=== PATIENT | male | born 1955 | race Caucasian/White ===

== ENCOUNTER 2020-05-01 19:05 | Observation (INO) | payer MEDICARE, OTHER, SELFPAY ==
--- NOTE | ~2020-05-01 | XR_ITS ---
EXAMINATION: XR abdomen/kub 1V EXAM DATE: 05/03/2020 06:08 INDICATION: Constipation. TECHNIQUE: Frontal projection(s) of the abdomen for interpretation. Comparison is made to prior exami nation from 05/02/2020. FINDINGS: Interval decrease in quantity of colonic gas compared to yesterday, now small to moderate. There is no small bowel dilation. There is right hip replacement. Some lower lumbar spondylosis. Cho lecystectomy clips. IMPRESSION: Unremarkable XR abdomen/kub 1V exam. Reviewed, dictated and finalized at location A.
--- NOTE | ~2020-05-01 | XR_ITS ---
EXAMINATION: XR abdomen/kub 1V INDICATION: Constipation, abdominal pain TECHNIQUE: Supine view of the abdomen is obtained. COMPARISON: None FINDINGS: There is a moderate volume of persistent stool in the rectum. The bowel gas pattern is norm al. There is mild gaseous distention of the proximal transverse colon. Changes of right hip arthropla sty are noted. Contrast from earlier CT examination opacifies the urinary bladder. IMPRESSION: 1. Moderate volume of persistent stool in the rectum. Reviewed, dictated and finalized at location B.
--- NOTE | ~2020-05-01 | CT_ITS ---
EXAMINATION: CT abdomen pelvis w con INDICATION: Abdominal pain and constipation TECHNIQUE: Computed tomographic images of the abdomen and pelvis were obtained after the administrati on of 100 cc of Omnipaque 350 intravenous contrast. The dose-length product (DLP) was 643.22 mGy-cm. Automated exposure control and iterative reconstruction technique were employed. COMPARISON: None available FINDINGS: Minimal dependent atelectasis is present in the lung bases. The heart size is normal. There is a small sliding hiatal hernia. Calcified coronary artery atherosclerosis is noted. The gallbladde r is surgically absent. The liver, spleen, pancreas, and adrenal glands are normal. The right kidney is unremarkable. Cysts of the left kidney measure up to 9 mm. No pathologically enlarged abdominal or pelvic lymph nodes are identified. There is no free intraperitoneal gas or evidence of bowel obstruc tion. There is a large volume of stool in the rectum and distal sigmoid colon. Changes of right hip a rthroplasty are noted. There is moderate lumbar spondylosis. IMPRESSION: 1. Fecal impaction of the rectum and distal sigmoid colon. Reviewed, dictated and finalized at location B.
[2020-05-01 19:06] VITALS: PULSE 56; RESP 20; TEMP 36.8; O2SAT 100
[2020-05-01 21:03] VITALS: BP 139/97; PULSE 101; RESP 18; O2SAT 100
--- NOTE | 2020-05-01 21:23 | ED.ABDPAIN ---
HPI - Abdominal Pain General Chief Complaint: Abdominal Pain <Neftaly Brooke MD - Last Filed: 05/02/20 17:58> Stated Complaint: constipation <Neftaly Brooke MD - Last Filed: 05/02/20 17:58> Time Seen by Provider: 05/01/20 21:10 <Neftaly Brooke MD - Last Filed: 05/02/20 17:58> History of Present Illness HPI narrative: He reports that he has not had a bowel movmeent in 1 week. He has started having severe pain in his rectum. He is hemiplegic following a stroke. He has had one previous episode of fecal impaction. No fever, nausea, vomiting. <Neftaly Brooke MD - Last Filed: 05/02/20 17:58> Related Data Home Medications: Home Medications Medication Instructions Recorded Confirmed aspirin 81 mg tablet,delayed 81 mg PO DAILY 08/25/19 05/02/20 release multivitamin 1 tablet PO DAILY 08/25/19 05/02/20 fluoxetine [Prozac] 20 mg PO DAILY 05/01/20 05/02/20 <Neftaly Brooke MD - Last Filed: 05/02/20 17:58> Allergies/Adverse Reactions: Allergies Allergy/AdvReac Type Severity Reaction Status Date / Time No Known Allergies Allergy Unknown Verified 05/01/20 21:00 <Neftaly Brooke MD - Last Filed: 05/02/20 17:58> Review of Systems Review of Systems: All systems reviewed & are unremarkable except as noted in HPI and below <Neftaly Brooke MD - Last Filed: 05/02/20 17:58> Constitutional: Constitutional: Denies fever(s) <Neftaly Brooke MD - Last Filed: 05/02/20 17:58> Cardiovascular: Cardiovascular: Denies chest pain <Neftaly Brooke MD - Last Filed: 05/02/20 17:58> Respiratory: Respiratory: Denies dyspnea <Neftaly Brooke MD - Last Filed: 05/02/20 17:58> Gastrointestinal: Gastrointestinal: Denies abdominal pain, Reports constipation, Denies nausea and Denies vomiting <Neftaly Brooke MD - Last Filed: 05/02/20 17:58> Neurologic: Denies dizziness <Neftaly Brooke MD - Last Filed: 05/02/20 17:58> [facility] Past Medical History Medical History: Medical History Benign prostatic hyperplasia with urinary frequency Constipation Depression Dyslipidemia Essential hypertension Fecal impaction in rectum Gastroesophageal reflux disease Hemiplegia affecting left nondominant side History of CVA (cerebrovascular accident) History of hemorrhagic cerebrovascular accident (CVA) with residual deficit History of nicotine use Quit smoking 11/2018 Physical deconditioning Ventral hernia without obstruction or gangrene Weight loss <Neftaly Brooke MD - Last Filed: 05/02/20 17:58> Surgical History Surgical History: Surgical History History of total right hip replacement Hx of cholecystectomy Hx of shoulder surgery <Neftaly Brooke MD - Last Filed: 05/02/20 17:58> Family History Family History: Family History Father Patient's father is Cerebrovascular accident Mother Patient's mother is Cardiac aneurysm Other Abdominal aortic aneurysm rupture Family history of arthritis Family history of malignant neoplasm Hypertension <Neftaly Brooke MD - Last Filed: 05/02/20 17:58> Social History Social History: Social History Smoking status: Former smoker Tobacco type: cigarettes Smoking end date: 11/26/18 Alcohol intake: never Substance use: current Substance use type: marijuana and prescription drug Other substance usage details: edibles Living arrangements: with family Additional living arrangements comments: His brother Jose Lives with him in [place]. He uses a wheelchair to get around. Occupation/Education: retired Additional occupation/education comments: He worked at [employer] for 26 years and recently reti
[2020-05-01 21:26] LABS: Basophils Percent Auto 0.2 % (0.2-1.2); Eosinophils Percent Auto 0.1 % (0-4.4); Hematocrit 43.3 % (42.0-52.0); Hemoglobin 14.9 g/dL (14.0-18.0); Immature Granulocyte Absolute 0.08 K/mm3 (0.00-0.031); Immature Granulocyte Percent A 0.4 % (0-0.5); Lymphocytes Absolute Auto 0.86 K/mm3 (0.9-3.2); Lymphocytes Percent Auto 4.7 % (18.3-44.2); Mean Corpuscular HGB Conc 34.4 g/dl (32-36); Mean Corpuscular Hemoglobin 32.3 pg (26-34); Mean Corpuscular Volume 93.9 fl (80-100); Mean Platelet Volume 10.2 fl (7.4-10.4); Monocytes Absolute Auto 1.6 K/mm3 (0.1-0.6); Monocytes Percent Auto 8.6 % (2.6-8.5); Neutrophils Absolute Auto 15.8 K/mm3 (1.3-6.7); Platelet Count Result 222 k/mm3 (150-375); Red Blood Count 4.61 M/mm3 (4.6-6.20); Red Cell Distribution Width 11.6 % (11.5-14.5); White Blood Count 18.4 K/mm3 (4.5-10.0)
[2020-05-01 21:40] LABS: Lactic Acid Reflex 1.7 mmol/L (0.7-2.1)
[2020-05-01 21:41] LABS: Alanine Aminotransferase 32 U/L (4-50); Albumin Level 4.2 g/dL (3.5-5.1); Alkaline Phosphatase 77 U/L (38-126); Anion Gap 12.8 mmol/L (7-16); Aspartate Amino Transferase 27 U/L (17-59); Bilirubin,Total 0.7 mg/dL (0.2-1.3); Blood Urea Nitrogen 22 mg/dL (9-20); Calcium 9.8 mg/dL (8.4-10.2); Carbon Dioxide 24 mmol/L (22-30); Chloride 102 mmol/L (98-107); Estimated CRCL calculation 80 ml/min; Estimated Glomerular Filt Rate > 60; Glucose 118 mg/dL (75-110); Potassium 3.8 mmol/L (3.4-5.0); Sodium 135 mmol/L (137-145)
[2020-05-01 22:07] LABS: Add Urine Microscopic? YES; Appearance Urine Clear (Clear); Bacteria Urine Trace /hpf; Bilirubin Urine Negative (Negative); Blood Urine Negative (Negative); Color Urine Yellow (Yellow); Glucose Urine UA Negative (Negative); Ketones Urine Negative (Negative); Leukocyte Esterase Ur Negative LEU/UL (Negative); Mucus Urine Rare /lpf; Nitrate Urine Negative (Negative); Protein Urine Negative (Negative); RBC Urine 0-2 /hpf (0-2); Specific Grav Ur 1.021 (1.001-1.035); Squamous Epithelial Cell Urine Rare /hpf (Few); Urobilinogen Urine Negative mg/dL (<2.0); WBC Urine 0-3 /hpf
[2020-05-01 22:32] VITALS: BP 142/84; PULSE 104; RESP 17; O2SAT 97
[2020-05-01] MEDS: DOCUSATE SODIUM 400 MG/400 ML ENEMA RECTAL (22:32)
[2020-05-01 23:45] VITALS: BP 154/80; PULSE 98; RESP 14; O2SAT 99
[2020-05-02] VITALS (9 sets, daily range): BP systolic 93–142; BP diastolic 62–117; PULSE 69–114; RESP 12–21; TEMP 36.4–36.6; O2SAT 97–99; BMI 21.1
--- NOTE | 2020-05-02 00:55 | PC.NURSE ---
Pt soiled bed with stool x4
[2020-05-02] MEDS: MORPHINE SULFATE 4 MG/ML INJ IV PUSH ×2 (04:05→06:12)
--- NOTE | 2020-05-02 05:23 | PC.NURSE ---
This patient, Kenneth Page, was admitted to 2 Medical Room 260-01. Patient/family oriented to hospital policies and general routines including ID bracelet, bed and alarms, visiting hours, pain management, procedures, bathroom and other care routines, personal items, smoking policy, room service/diet, and visiting hours. Valuables list has been completed. Information on how to activate the Rapid Response Team has been discussed. Patient/Family are encouraged to report perceived risks to care and to ask questions if they do not understand what they are told or what they should do.
[2020-05-02] MEDS: SODIUM CHLORIDE 0.9% IV 1,000 ML 125 ML IV CONT (05:25)
[2020-05-02 08:53] LABS: Basophils Percent Auto 0.3 % (0.2-1.2); Eosinophils Absolute Auto 0.1 K/mm3 (0-0.3); Eosinophils Percent Auto 0.6 % (0-4.4); Hematocrit 41.1 % (42.0-52.0); Hemoglobin 13.9 g/dL (14.0-18.0); Immature Granulocyte Absolute 0.07 K/mm3 (0.00-0.031); Immature Granulocyte Percent A 0.4 % (0-0.5); Lymphocytes Absolute Auto 1.47 K/mm3 (0.9-3.2); Lymphocytes Percent Auto 9.2 % (18.3-44.2); Mean Corpuscular HGB Conc 33.8 g/dl (32-36); Mean Corpuscular Hemoglobin 32.1 pg (26-34); Mean Corpuscular Volume 94.9 fl (80-100); Mean Platelet Volume 10.3 fl (7.4-10.4); Monocytes Absolute Auto 1.6 K/mm3 (0.1-0.6); Monocytes Percent Auto 9.8 % (2.6-8.5); Neutrophils Absolute Auto 12.7 K/mm3 (1.3-6.7); Neutrophils Percent Auto 79.7 % (45.5-73.1); Platelet Count Result 220 k/mm3 (150-375); Red Blood Count 4.33 M/mm3 (4.6-6.20); Red Cell Distribution Width 11.6 % (11.5-14.5)
[2020-05-02 09:05] LABS: Anion Gap 12.3 mmol/L (7-16); Blood Urea Nitrogen 19 mg/dL (9-20); Calcium 9.3 mg/dL (8.4-10.2); Carbon Dioxide 24 mmol/L (22-30); Chloride 103 mmol/L (98-107); Estimated CRCL calculation 74 ml/min; Estimated Glomerular Filt Rate > 60; Glucose 103 mg/dL (75-110); Potassium 4.3 mmol/L (3.4-5.0); Sodium 135 mmol/L (137-145)
[2020-05-02] MEDS: TAMSULOSIN HCL 0.4 MG CAPSULE PO (09:14)
[2020-05-02] MEDS: DOCUSATE SODIUM 100 MG CAPSULE PO (09:14)
[2020-05-02] MEDS: ASPIRIN 81 MG ENTERIC TABLET PO (09:14)
[2020-05-02] MEDS: ROSUVASTATIN 5 MG TABLET PO (09:14)
[2020-05-02] MEDS: FLUoxetine HCL 20 MG CAPSULE PO (09:14)
[2020-05-02] MEDS: MAGNESIUM HYDROXIDE SUSP 30 ML UDC PO (13:13)
[2020-05-02] MEDS: polyethylene glycoL 3350 17 GM POWD.PACK PO ×2 (13:14→15:55)
[2020-05-02] MEDS: traMADol HCL 50 MG TABLET PO ×2 (13:16→20:52)
--- NOTE | 2020-05-02 13:52 | PM.IMHP ---
H&P: HPI History of Present Illness Chief complaint: Obstipation, abd pain Narrative: Kenneth Page is a 64 year old male with history of CVA causing left-sided hemiparesis November of 2018, who presented to the emergency department with constipation for 1 week. He normally eats a high-fiber diet without any issues of constipation but states he has not had a good bowel movement in 1 week and began having gradually worsening severe pain at his rectum prior to arrival which caused him to come to the emergency room for further evaluation. He administered 2 Senokot tablets prior to arrival without any improvement of his constipation. He reports a lot of abdominal cramping and rectal pain. he denies any fevers, chills, nausea, vomiting, chest pain, shortness of breath, cough, lightheadedness, dizziness, leg swelling, calf pain, dysuria, frequent urination, dark color to his urine, or any other symptoms at this time. He also reports some left ear pain which has been going on for about a week as well. He has chronic Meniere's disease and tinnitus. He has chronic left-sided hemiparesis from his stroke and reports some left-sided hip pain and shoulder pain which is chronic. initial labs showed temperature of 98.2?, blood pressure 138/97, heart rate 56, respiratory rate 20, oxygen saturation 100% on room air. Initial labs showed leukocytosis at 18,400, with a left shift at 86%, sodium slightly low 135, normal lactic acid. Urinalysis was normal. CT abdomen pelvis shows fecal impaction of the rectum and distal sigmoid colon. He was admitted into the hospital for further evaluation treatment of his constipation. GI was consulted for further evaluation from the emergency department. Code status: DNR Power of real estate associate attorney: Brother Jose Page PCP: Dr. Diallo Review of Systems Review of Systems: All systems reviewed & are unremarkable except as noted in HPI and below [facility] Past Medical History Medical History Benign prostatic hyperplasia with urinary frequency Constipation Depression Dyslipidemia Essential hypertension Fecal impaction in rectum Gastroesophageal reflux disease Hemiplegia affecting left nondominant side History of CVA (cerebrovascular accident) History of hemorrhagic cerebrovascular accident (CVA) with residual deficit History of nicotine use Quit smoking 11/2018 Physical deconditioning Ventral hernia without obstruction or gangrene Weight loss Surgical History Surgical History History of total right hip replacement Hx of cholecystectomy Hx of shoulder surgery Family History Family History Father Patient's father is Cerebrovascular accident Mother Patient's mother is Cardiac aneurysm Other Abdominal aortic aneurysm rupture Family history of arthritis Family history of malignant neoplasm Hypertension Social History Social History Smoking status: Former smoker Tobacco type: cigarettes Smoking end date: 11/26/18 Alcohol intake: never Substance use: current Substance use type: marijuana and prescription drug Other substance usage details: edibles Living arrangements: with family Additional living arrangements comments: His brother Jose Lives with him in [place]. He uses a wheelchair to get around. Occupation/Education: retired Additional occupation/education comments: He worked at [employer] for 26 years and recently retired 2019. Gender identity (if verbalized by the patient): Male Spiritual care concerns: No Meds Home Medications and Allergies Home Medications Medication Instructions Recorded Confirmed Type aspirin 81 mg tablet,delayed 81 mg PO DAILY 08/25/19 05/02/20 History release multivit
--- NOTE | 2020-05-02 14:08 | WPDGICN ---
Assessment and Plan Assessment and plan (1) Fecal impaction in rectum: Code(s): K56.41 - Fecal impaction Status: Acute Assessment and Plan: rectal exam did not reveal more impaction, continue with bowel regimen (2) Constipation: Code(s): K59.00 - Constipation, unspecified Status: Acute Assessment and Plan: will need miralax in daily basis, also increase fiber in diet and monitor frequency of bowel movements at home he is not due to have another colonoscopy until 2022 (3) History of hemorrhagic cerebrovascular accident (CVA) with residual deficit: Code(s): I69.30 - Unspecified sequelae of cerebral infarction Status: Acute (4) Essential hypertension: Code(s): I10 - Essential (primary) hypertension Status: Acute GI Consult Note Consult date/time: 05/02/20 14:08 Reason for consult: fecal impaction HPI: Kenneth Page is a 64 year old male with left sided hemiplegia after CVA last year and constipation since then. He came with worsening abdominal pain after not having a bowel movement for almost 1 week. ER evaluation had significant abdominal discomfort and rectal pain, CT scan showed fecal impaction rectum and distal sigmoid. He has been given laxatives and RN reports several BM's, patient right now is not having much of pain, improving. At home he uses senokot and miralax prn. His last colonoscopy was [address] To that found diverticulosis and hemorrhoids, no polyps and instructed to repeat in 10 more years. Review of Systems Constitutional: Constitutional: Denies fatigue and Denies headache(s) Eyes: Eyes: Denies blurry vision ENT: Reports Normal hearing present, Denies headache(s) and Denies neck pain Cardiovascular: Cardiovascular: Denies chest pain and Denies dyspnea Respiratory: Respiratory: Denies dyspnea Gastrointestinal: Gastrointestinal: Reports no additional gastrointestinal complaints Genitourinary: Genitourinary: Denies dysuria Musculoskeletal: Musculoskeletal: Denies neck pain Integumentary/Breasts: Skin/Breast: Denies dry skin Neurologic: Reports Normal hearing present Comments: left sided hemiplegia Psychiatric: Psychiatric: Denies anxiety Endocrine: Endocrine: Denies change in body appearance Hematologic/Lymphatic: Hematologic/Lymphatic: Denies easy bleeding Allergic/Immunologic: Allergic/Immunologic: Denies urticaria PMFSH Family History Family History (Updated 05/02/20 @ 05:56 by Sheron Perdomo RN) Father Patient's father is Cerebrovascular accident Mother Patient's mother is Cardiac aneurysm Other Abdominal aortic aneurysm rupture Family history of arthritis Family history of malignant neoplasm Hypertension Social History Social History Smoking status: Former smoker Smoking end date: 10/07/04 Alcohol intake: never Substance use: current Substance use type: marijuana and prescription drug Other substance usage details: edibles Gender identity (if verbalized by the patient): Male Spiritual care concerns: No Meds Home Medications and Allergies Home Medications Medication Instructions Recorded Confirmed Type aspirin 81 mg tablet,delayed 81 mg PO DAILY 08/25/19 05/02/20 History release multivitamin 1 tablet PO DAILY 08/25/19 05/02/20 History rosuvastatin 5 mg tablet 5 mg PO DAILY #90 tablet 12/14/19 05/02/20 Rx lisinopril 10 mg tablet 10 mg PO DAILY #90 tablet 12/21/19 05/02/20 Rx tamsulosin 0.4 mg capsule 0.4 mg PO DAILY #90 cap 12/21/19 05/02/20 Rx fluoxetine [Prozac] 20 mg PO DAILY 05/01/20 05/02/20 History Allergies Allergy/AdvReac Type Severity Reaction Status Date / Time No Known Allergies Allergy Unknown Verified 05/01/20 21:00 Vital Signs Vital Signs - 24 hr 05/01/20 19:06 05/01/20 21:03 05/01/20 22:32 Temperature 98.2 F Pulse Rate 56 L 101
--- NOTE | 2020-05-02 14:35 | PCNSR ---
On 05/02/20, the student, [Geroges Patino ], provided care and completed [employer] documentation on this patient. I have reviewed the student's documentation and agree with the findings.
[2020-05-02] MEDS: ENOXAPARIN 40 MG/0.4 ML SYRINGE SUB-Q (15:54)
[2020-05-03 05:54] LABS: Basophils Percent Auto 0.4 % (0.2-1.2); Eosinophils Absolute Auto 0.3 K/mm3 (0-0.3); Eosinophils Percent Auto 3.2 % (0-4.4); Hematocrit 39.7 % (42.0-52.0); Hemoglobin 13.2 g/dL (14.0-18.0); Immature Granulocyte Absolute 0.02 K/mm3 (0.00-0.031); Immature Granulocyte Percent A 0.2 % (0-0.5); Lymphocytes Absolute Auto 1.52 K/mm3 (0.9-3.2); Lymphocytes Percent Auto 18.6 % (18.3-44.2); Mean Corpuscular HGB Conc 33.2 g/dl (32-36); Mean Corpuscular Hemoglobin 31.3 pg (26-34); Mean Corpuscular Volume 94.1 fl (80-100); Mean Platelet Volume 9.8 fl (7.4-10.4); Monocytes Absolute Auto 0.8 K/mm3 (0.1-0.6); Monocytes Percent Auto 9.8 % (2.6-8.5); Neutrophils Absolute Auto 5.5 K/mm3 (1.3-6.7); Neutrophils Percent Auto 67.8 % (45.5-73.1); Platelet Count Result 196 k/mm3 (150-375); Red Blood Count 4.22 M/mm3 (4.6-6.20); Red Cell Distribution Width 11.5 % (11.5-14.5); White Blood Count 8.2 K/mm3 (4.5-10.0)
[2020-05-03 06:00] VITALS: BP 91/61; PULSE 68; RESP 20; TEMP 36.2; O2SAT 99
[2020-05-03 06:02] LABS: Anion Gap 9.9 mmol/L (7-16); Blood Urea Nitrogen 15 mg/dL (9-20); Carbon Dioxide 26 mmol/L (22-30); Chloride 103 mmol/L (98-107); Estimated CRCL calculation 83 ml/min; Estimated Glomerular Filt Rate > 60; Glucose 90 mg/dL (75-110); Potassium 3.9 mmol/L (3.4-5.0); Sodium 135 mmol/L (137-145)
[2020-05-03] MEDS: ENOXAPARIN 40 MG/0.4 ML SYRINGE SUB-Q (08:55)
[2020-05-03] MEDS: ASPIRIN 81 MG ENTERIC TABLET PO (08:55)
[2020-05-03] MEDS: ROSUVASTATIN 5 MG TABLET PO (08:55)
[2020-05-03] MEDS: TAMSULOSIN HCL 0.4 MG CAPSULE PO (08:55)
[2020-05-03] MEDS: FLUoxetine HCL 20 MG CAPSULE PO (08:55)
--- NOTE | 2020-05-03 11:01 | PM.DS ---
DS: Admitting Diagnosis Admitting Diagnosis Admitting Diagnosis: Fecal impaction DS: Discharge Diagnosis Discharge Diagnosis (1) Constipation: Code(s): K59.00 - Constipation, unspecified Status: Acute Assessment and Plan: The patient was found to have a fecal impaction of the rectum and distal sigmoid colon on his abdomen pelvis CT scan on arrival to the ER. The patient was given an enema last night and he has had multiple bowel movements today. 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 (2) Fecal impaction in rectum: Code(s): K56.41 - Fecal impaction Status: Acute Assessment and Plan: See above under constipation. (3) Essential hypertension: Code(s): I10 - Essential (primary) hypertension Status: Acute Assessment and Plan: bp is soft hold lisinopril for a few days pt needs to drink more fluids looks dry and restart lisinopril 5 mg po daily in 3 days time if his sbp is less than 100 he can stop lisinopril completely pt adviced to check his bp at home. 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 with [facility] (5) Leukocytosis: Code(s): D72.829 - Elevated white blood cell count, unspecified Status: Resolved Assessment and Plan: maybe stress related wc are normal now. DS: Summary Time Spent with Patient Time attestation: Total time spent providing and/or coordinating discharge services:40 minutes on day of discharge Exam Const: General: other (chronically ill ) Resp: Effort & Inspection: normal respiratory effort Auscultation: clear to auscultation bilaterally Cardio: Jugular venous distension: no JVD Rhythm: regular rhythm Heart sounds: S1 normal heart sound present and S2 normal heart sound present GI: Inspection: normal to inspection GI Palp: No abdominal tenderness, Yes Soft to palpation and No Tenderness to palpation present (GI) Auscultation: normal bowel sounds Neuro: Sensory Exam: other (weakness on left side arm and leg ) DS: Data Data Completed and Pending Labs on day of discharge: Labs from last 24 hours 05/03/20 05/03/20 05:35 05:35 WBC 8.2 RBC 4.22 L Hgb 13.2 L Hct 39.7 L MCV 94.1 MCH 31.3 MCHC 33.2 RDW 11.5 Plt Count 196 MPV 9.8 Immature Gran % (Auto) 0.2 Neut % (Auto) 67.8 Lymph % (Auto) 18.6 [place] % (Auto) 9.8 H Eos % (Auto) 3.2 Baso % (Auto) 0.4 Lymph # (Auto) 1.52 [place] # (Auto) 0.8 H Eos # (Auto) 0.3 Baso # (Auto) 0.0 Abs Immat Gran (auto) 0.02 Absolute Neuts (auto) 5.5 Absolute Nucleated RBC 0.0 Nucleated RBC % 0.0 Sodium 135 L Potassium 3.9 Chloride 103 Carbon Dioxide 26 Anion Gap 9.9 BUN 15 Creatinine 0.70 Estim Creat Clear Calc 83 Estimated GFR > 60 Glucose 90 Calcium 9.0 Discharge Plan Discharge Attending physician on discharge: Mili Chowdhury Consulting providers: Erick Aviles Discharging Clinician: Mili Chowdhury Anticipated Discharge Date/Time: 05/03/20 03:00
[2020-05-03 13:26] VITALS: BP 109/63; PULSE 60; RESP 18; TEMP 36.4; O2SAT 95
== END 2020-05-03 18:06 | disposition home health service (06) ==
LOC: ANHED 05-02 00:19 → ANH2MED 05-02 04:29
PROVIDERS: Emergency Medicine Emergency Medical Services; Physician Assistant; Admitting Provider Internal Medicine; Emergency Provider Emergency Medicine; PCP Internal Medicine; Visit Provider Family Medicine
DX: I69.354 Hemiplegia and hemiparesis following cerebral infarction affecting left non-dominant side (principal); I10 Essential (primary) hypertension; Z87.891 Personal history of nicotine dependence; Z96.641 Presence of right artificial hip joint; K56.41 Fecal impaction; H81.09 Meniere's disease, unspecified ear; H93.19 Tinnitus, unspecified ear; D72.829 Elevated white blood cell count, unspecified
CPT/HCPCS: 36415; 74018; 74177; 80048; 80053; 81001; 83605; 85025; 96372; 96374; 96376; 97161; 97165; 99285; A9270; G0378; J1650; J2270; J7030; Q9967

== ENCOUNTER 2020-06-20 11:00 | Outpatient (RCR) | payer MEDICARE, OTHER, SELFPAY ==
[2020-03-29 11:12] VITALS: BP_SYST 90
--- NOTE | 2020-03-29 12:00 | OTOPEVAL ---
OCCUPATIONAL THERAPY EVALUATION 03/29/2020 Thank you for referring Kenneth Page to [facility]. Skilled OT indicated 2x/week for 4 weeks for deficits outlined below. Please review, sign, date and return this plan of care TAHIRA. I agree with and certify that the following plan of care is medically necessary. Referring Physician Date Referring Provider: Martinez Diallo MD *OT Outpatient Evaluation Therapy Assessment Status Assessment Status Assessment Status Evaluation Outpatient Past Medical History Neurological History Hx Cerebrovascular Accident (CVA) Yes Cardiovascular History Hx Hypertension Yes Genitourinary History Hx Benign Prostatic Hyperplasia Yes Musculoskeletal History Hx Joint Replacement Yes: R ISAIAS Hx Other Musculoskeletal Disorders Yes: L hemiplegia, deconditioning Evaluation Information Problem Diagnosis CVA Onset Nov 2018 Subjective Information Patient had CVA Nov 2018, s/p Query Text:As Reported By Patient/ intubation and ICU x40 days, Family [facility], then discharged home. He also went to [facility] PT/OT/ST from May 2019 to January 2020. He gets botox injections every 4 months. He reports the botox helps a lot with pain. His goal with therapy is to be able to get in and out of his car more independently. Prior Level of Function Activity Level (Last 3 Months) Occupation Retired Hand Dominance Right Activity of Daily Living Ability Needs Some Help Indoor/Home Mobility Dependent Community Mobility Dependent Stairs Ability Not-Applicable Cooking No Cleaning No Laundry No Shopping No Driving Yes Home Setting Home Type Condo/Duplex/Townhouse Environmental Barriers Stairs, None,Stairs, Greater than 4 Living Situation With Relatives Support Available Neighbor/Friend Support Mobility Assistive Devices (Used Last 3 Wheelchair, Manual Months) Toileting Equipment Grab Bars,Tall Toilet Comments Additional Prior Level of Function Patient lives with his brother Comments (and did so before the CVA). Currently he uses a w/c for his mobility and sleeps in a hospital bed. He reports that
--- NOTE | 2020-03-29 13:39 | PTOPEVAL ---
PHYSICAL THERAPY EVALUATION AND PLAN OF CARE 03-29-2020 The PT evaluation was completed today for the diagnosis of malaise. The PT plan of treatment is scheduled for 2x/week for 4 weeks. Thank you for referring Kenneth Page to [facility]. Please review, sign, date and return this plan of care TAHIRA. I agree with and certify that the following plan of care is medically necessary. Referring Physician Date Attending Provider: Martinez Diallo MD *PT Outpatient Evaluation Start: 03/29/20 12:39 Document 03/29/20 12:39 JALEESA (Rec: 03/29/20 13:36 JALEESA [id number]) Therapy Assessment Status Assessment Status Assessment Status Evaluation Outpatient Past Medical History Past Medical History Source of Past Medical History Patient Neurological History Hx Cerebrovascular Accident (CVA) Yes: Nov 2018, L hemiplegia Cardiovascular History Hx Hypertension Yes Respiratory History Hx Respiratory Disorders No Significant History Gastrointestinal History Hx Gastrointestinal Disorders No Significant History Genitourinary History Hx Benign Prostatic Hyperplasia Yes Musculoskeletal History Hx Back Pain Yes Hx Joint Replacement Yes: R ISAIAS Hx Other Musculoskeletal Disorders Yes: Pain R shoulder Endocrine History Hx Endocrine Disorders No Significant History HEENT History Hx HEENT Disorders No Significant History Integumentary History Hx Skin Disorders No Significant History Other History Hx Other Surgeries Yes: gallbladder Evaluation Information Problem Diagnosis malaise Onset Nov 2018 Subjective Information CVA with L side weakness; get Query Text:As Reported By Patient/ botox injections in L arm and Family leg about every 3 months-- helps pain and spasticity; Previous Treatments Previous Treatments For This Problem previous PT another facility until about December,then coronavirus & medicare Prior Level of Function Activity Level (Last 3 Months) 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
--- NOTE | 2020-04-26 13:20 | PTOPEVAL ---
PHYSICAL THERAPY RE-EVALUATION AND UPDATED PLAN OF CARE 04-26-2020 Kenneth has received a total of 8 PT sessions, from March 29 to today, for the diagnosis of s/p CVA. He has improved with L hip strength, transfer, standing balance, wheel chair mobility and gait skills, with progression of home exercises. Kenneth remains motivated and works hard during sessions. To continue PT 2x/week for 4 weeks, to further increase his strength and mobility skills, to increase his independence and decrease amount of assistance required from his brother and caregiver. Thank you for referring Kenneth Page to [facility]. Please review, sign, date and return this plan of care TAHIRA. I agree with and certify that the following plan of care is medically necessary. Referring Physician Date Attending Provider: Martinez Diallo MD Document 04/26/20 12:30 JALEESA (Rec: 04/26/20 13:20 JALEESA [id number]) Assessment Status Re-evaluation Subjective Information Kenneth reports: am making good Query Text:As Reported By Patient/ progress with strength, pain Family is less in arm and moving better; have caregiver once a week to help with shaving; brother helps with transportation, meal prep, home cleaning, transfers onto toiliet- due to position in bathroom of the toliet; push self in w/c around house; is pleased and wants to continue therapy. His goal is to walk into the bathroom to use the toliet--w/c can go straight into bathroom but cannot turn w/c around; would have to pivot from w/c to his L side to get onto toliet. He has grab bars on the wall, but not positioned in the right place. Pain Assessment Timing of Pain Assessment Timing of Pain Assessment Assessment Self Report Self Report Pain Level 0 Pain Score Pain Score 0: Self Report Lower Extremity Muscle Strength Testing General Lower Extremity Strength Gross Lower Extremity Strength -L LE: supine: SLR x 20 reps; hip abduction with slippery fabric under foot x 12 reps with increased hip and trunk motion; bridge x 22 reps; unable to perform heel slide; hook lying hip ab/adduction x 25 reps; increased extension tone in L
[2020-04-26 13:35] VITALS: BP_SYST 90
--- NOTE | 2020-04-26 14:23 | OTOPEVAL ---
OCCUPATIONAL THERAPY RE-EVALUATION REPORT 04/26/2020 Thank you for referring Kenneth Page to [facility]. Continued OT indicated for 2x/week for 4 weeks. Please review, sign, date and return this plan of care TAHIRA. I agree with and certify that the following plan of care is medically necessary. Referring Physician Date Referring Provider: Martinez Diallo MD *OT Outpatient Re-valuation Evaluation Information Problem Diagnosis s/p CVA Onset Nov 2018 Additional Evaluation Detail Kenneth has been participating in outpatient OT x4 weeks. OT has been focusing on improved flexibility and self ROM in conjunction with thermal modalities, manual therapy, weight bearing, and splinting. Subjective Information Kenneth reports less shoulder Query Text:As Reported By Patient/ pain and less stiffness in the Family LUE. He states he is more aware of positioning of the LUE into abduction to help with his adduction contracture. Pain Assessment Timing of Pain Assessment Timing of Pain Assessment Assessment Pain Scale Pain Scale Used Numeric (1 - 10) Self Report Pain Assessment Left Shoulder(s) Reported Pain Level 1 Pain Description Soreness Pain Score Pain Score 1: Self Report Upper Extremity Range of Motion Scapular/ Shoulder Range of Motion Left Shoulder Flexion - Active 0 Shoulder Flexion - Passive 98 Shoulder Abduction - Active 0 Shoulder Abduction - Passive 90 Shoulder Lateral Rotation - Active 0 Shoulder Lateral Rotation - Passive 45 Scapular/Shoulder Range of Motion Patient can complete self PROM Comments into flexion to 70* Elbow/Forearm Range of Motion Left Elbow Flexion - Active 0 Elbow Flexion - Passive 130 Elbow Extension - Active 0 Elbow Extension - Passive 0 Forearm Supination - Active 0 Forearm Supination - Passive 85 Forearm Pronation - Active 0 Forearm Pronation - Passive 85 Wrist Range of Motion Left Wrist Flexion - Active 0 Wrist Flexion - Passive 70 Wrist Extension - Active 0 Wrist Extension - Passive 70 Finger Range of Motion Left Finger Range of Motion Comments No AROM of the left fingers/ thumb. PROM is WFL. Upper Extremity Muscle Strength Testing Scapular/Shoulder Left Shoulder Elevation - Upper Trapezius 2+ Poor + Scapular Retraction - Middle Trapezius 0 Zero Shoulder Flexion Strength 0 Zero Shoulder Extensi
--- NOTE | 2020-05-02 10:10 | PCOTNOTE ---
Pt scheduled for 10:00 am outpatient OT treatment on this date, pt is currently in hospital and unable to attend appointment on 05/02/2020.
--- NOTE | 2020-05-04 11:34 | PCOTNOTE ---
Patient unable to attend therapy this date. He discharged from the hospital yesterday.
--- NOTE | 2020-05-06 13:56 | PCPTNOTE ---
pt cancelled , did not have a new dr. order due to being in the hospital.
--- NOTE | 2020-05-06 16:04 | PCOTNOTE ---
Pt's tx this date was cancelled due to not having orders from MD to continue therapy after being hospitalized.
--- NOTE | 2020-05-11 08:24 | PCPTNOTE ---
Patient did not show up for scheduled appointment this date. Called patient, had to leave a message.
--- NOTE | 2020-05-13 12:46 | PCPTNOTE ---
LATE ENTRY: orders were received by fax, dated 05-06-20 to continue PT; pt was hospitalized due to constipation. Resume PT with the same goals and POC.
[2020-05-23 09:07] VITALS: BP_SYST 85
--- NOTE | 2020-05-23 09:51 | OTOPEVAL ---
OCCUPATIONAL THERAPY RE-EVALUATION REPORT 05/23/2020 Thank you for referring Kenneth Page to [facility] [place].? The patient is scheduled to be seen for therapy?2x/week for 4 weeks. Please review, sign, date and return this plan of care TAHIRA. I agree with and certify that the following plan of care is medically necessary. Referring Physician Date Referring Provider: Martinez Diallo MD *OT Outpatient Re-Evaluation Evaluation Information Problem Diagnosis s/p CVA Onset Nov 2018 Additional Evaluation Detail Kenneth has been participating in outpatient OT since 03/29/20. 1 week, or 2 sessions, were missed due to patient being hospitalized. OT has been focusing on improved flexibility and self ROM in conjunction with thermal modalities, manual therapy, weight bearing, and splinting. Subjective Information Kenneth reports that he is able Query Text:As Reported By Patient/ to complete his HEP with less Family pain. He notes improved flexibility overall. He notes improved awareness of his arm positioning at rest to help reduce contractures. Pain Assessment Timing of Pain Assessment Timing of Pain Assessment Re-assessment Pain Scale Pain Scale Used Numeric (1 - 10) Self Report Pain Assessment Left Shoulder(s) Reported Pain Level 1 Pain Description Aching Lowest Pain Intensity 0 Pain Score Pain Score 1: Self Report Upper Extremity Range of Motion Scapular/ Shoulder Range of Motion Left Scapular: Retraction Hypomobile Scapular: Protraction Hypomobile Scapular Downward Rotation Hypomobile Scapular Upward Rotation Hypomobile Shoulder Flexion - Active 0 Shoulder Flexion - Passive 90 Shoulder Abduction - Active 30 Shoulder Abduction - Passive 85 Shoulder Lateral Rotation - Active 0 Shoulder Lateral Rotation - Passive 45 Scapular/Shoulder Range of Motion Patient can complete self PROM Comments into flexion to 75*. Active abduction improved from 0*. Elbow/Forearm Range of Motion Left Elbow Flexion - Active 0 Elbow Flexion - Passive 130 Elbow Extension - Active 0 Elbow Extension - Passive 0 Forearm Supination - Active 0 Forearm Supination - Passive 85 Forearm Pronation - Active 0 Forearm Pronation - Passive 85 Wrist Range of Motion
--- NOTE | 2020-05-23 10:44 | PTOPEVAL ---
PHYSICAL THERAPY RE-EVALUATION AND UPDATED PLAN OF CARE 05-23-2020 Kenneth has received 12 PT sessions, from March 29 to today, for the diagnosis of s/p CVA. Compared with the last reevaluation: L hip strength is about the same, continues to have increased extension tone; pivot transfer w/c<> mat is about the same--varies depending upon his fatigue and tone; standing tolerance/balance without UE hold and walking have improved slightly; Discussed with him goals for next session of PT: he wants his brother to help him to walk into bathroom and get a power wheel chair. He stated his brother will come in for training to assist Kenneth with walking. Thank you for referring Kenneth Page to [facility].? The patient is scheduled to continue with PT? 2x/week for 4 weeks. Please review, sign, date and return this plan of care TAHIRA. I agree with and certify that the following plan of care is medically necessary. Referring Physician Date Attending Provider: Martinez Diallo MD *PT Outpatient Evaluation Start: 03/29/20 12:39 Freq: Status: Active Protocol: Document 05/23/20 09:50 JALEESA (Rec: 05/23/20 10:38 JALEESA [id number]) Subjective Information Kenneth reports: he wants to be Query Text:As Reported By Patient/ able to walk into his bathroom Family with the alla cane to use the toliet--bathroom is small and difficult to get the w/c in there and stand to turn to toliet; brother has been helping him but very awkward; also wants to get a power chair to be able to get around in his home; has been doing his exercises- standing at the sink and wants to continue therapy to get stronger and walk better; stated he is having a bad day --tone more in leg and did not sleep well last night ; is to get botox injections next week, which really help his tone. Pain Assessment Timing of Pain Assessment Timing of Pain Assessment Assessment Self Report Self Report Pain Level 0 Pain Score Pain Score 0: Self Report Lower Extremity Muscle Strength Testing General Lower Extremity Strength Gross Lower Extremity Strength supine: L LE SLR x 15 reps, hip flex ~ 30' with extension of trunk and L hip off mat; supine hip abduction x 10 reps ; increased extension tone and use of trunk to move L LE
--- NOTE | 2020-06-14 11:54 | PCOTNOTE ---
Patient missed visit this date. Practitioner called patient, appointment times got mixed up.
[2020-06-20 10:08] VITALS: BP_SYST 85
--- NOTE | 2020-06-20 10:40 | OTOPEVAL ---
OCCUPATIONAL THERAPY DISCHARGE NOTE 06/20/20 Thank you for referring Kenneth Page to [facility] [place].?At this time there has been limited progress with AROM and strength of the left UE. Discharging today with patient independent with HEP. Please review, sign, date and return this D/C Note TAHIRA. I agree with and certify that the following plan of care is medically necessary. Referring Physician Date Referring Provider: Martinez Diallo MD *OT Outpatient Re-Evaluation Problem Diagnosis s/p CVA Onset Nov 2018 Additional Evaluation Detail Kenneth has been participating in outpatient OT since 03/29/20. OT has been focusing on improved flexibility and self ROM in conjunction with thermal modalities, manual therapy, weight bearing, and splinting. Subjective Information Patient reports improved Query Text:As Reported By Patient/ motion in the left UE, being Family able to move the left arm over the arm rest of his wheelchair. Pain Assessment Timing of Pain Assessment Timing of Pain Assessment Re-assessment Self Report Self Report Pain Level 0 Pain Score Pain Score 0: Self Report Upper Extremity Range of Motion Scapular/ Shoulder Range of Motion Left Scapular: Retraction Hypomobile Scapular: Protraction Hypomobile Scapular Downward Rotation Hypomobile Scapular Upward Rotation Hypomobile Shoulder Flexion - Active 0 Shoulder Flexion - Passive 90 Shoulder Extension - Active 30 Shoulder Abduction - Active 40 Shoulder Abduction - Passive 85 Scapular/Shoulder Range of Motion Patient can complete self PROM Comments into flexion to 75*. Active abduction improved from 30* Upper Extremity Muscle Strength Testing Scapular/Shoulder Left Shoulder Elevation - Upper Trapezius 2- Poor - Scapular Retraction - Middle Trapezius 2- Poor - Shoulder Flexion Strength 0 Zero Shoulder Extension Strength 1 Trace Shoulder Abduction Strength 2- Poor - Shoulder Adduction Strength 1 Trace Shoulder Medial Rotation Strength 2- Poor - Shoulder Lateral Rotation Strength 2- Poor - Elbow/Forearm Left Elbow Flexion Strength 0 Zero Elbow Extension Strength 0 Zero Forearm Pronation Strength 0 Zero Forearm Supination Strength 0 Zero Elbow/Forearm Strength Comments Patient has tonal influences, but no AROM. He is able to complete self- PRO
--- NOTE | 2020-06-20 13:02 | PTOPEVAL ---
PHYSICAL THERAPY DISCHARGE 06-20-2020 Please refer to the clinical summary section below for his improvements on this reevaluation and discharge of PT services. Thank you for referring Kenneth to [facility].? Please review, sign, date and return this plan of care [facility]. I agree with and certify that the following plan of care is medically necessary. Referring Physician Date Attending Provider: Martinez Diallo MD *PT Outpatient Discharge Document 06/20/20 11:08 JALEESA (Rec: 06/20/20 11:57 JALEESA [id number]) Subjective Information Kenneth reports: to have hired Query Text:As Reported By Patient/ helper at home, to help with Family walking and exercises; brother helps him walk into bathroom, problems with scooting to edge of toliet to stand up- may consider a higher toliet seat; at home, has started walking more from room/room and not using the w/ c as much; was able to walk to front door and open it; brother is always standing by him when he walks; he is pleased with his progress. Pain Assessment Timing of Pain Assessment Timing of Pain Assessment Assessment Self Report Self Report Pain Level 0 Pain Score Pain Score 0: Self Report Lower Extremity Muscle Strength Testing General Lower Extremity Strength Gross Lower Extremity Strength supine: L SLR 13 reps-- increase ext tone in LE, lifts hip up off mat; hip abduction 10 reps, with use of trunk to move leg; standing: L hip abduction x 8 reps--with slight hip abduction ~ 10', increased trunk lateral motion to move hip; Transfer Assessment Bed Transfer Assessment Bed Transfer Destination w/c<> mat; w/c <> stand Cues Needed for Bed Transfer Tactile,Verbal Bed Transfer Comments varies with CGA to min assist one; extension tone in L LE- tends to hold trunk posterior, but is aware and will flex his trunk and hips to decrease tone Bed Mobility Assessment Bed Mobility Bed Type Mat Supine to Sit Ability Independent Sit to Supine Ability Independent Cues Needed for Bed Mobility None
== END 2020-06-20 16:13 | disposition home or self-care (01) ==
LOC: ANHPT 11:00
PROVIDERS: Visit Provider Internal Medicine
DX: Z86.73 Personal history of transient ischemic attack (TIA), and cerebral infarction without residual deficits (principal); R53.81 Other malaise
CPT/HCPCS: 97014; 97035; 97110; 97116; 97140; 97161; 97165; 97530; G0283

== ENCOUNTER 2020-09-14 11:00 | Outpatient (RCR) | payer MEDICARE, OTHER, SELFPAY ==
[2020-08-10 10:39] VITALS: BP_SYST 100
--- NOTE | 2020-08-10 11:17 | OTOPEVAL ---
OCCUPATIONAL THERAPY EVALUATION REPORT 08/10/2020 Thank you for referring Kenneth Page to [facility].? The patient is scheduled to be seen for therapy? 1x/week for 5 weeks. Please review, sign, date and return this plan of care TAHIRA. I agree with and certify that the following plan of care is medically necessary. Referring Physician Date Referring Provider: Toño Oviedo MD *OT Outpatient Evaluation Therapy Assessment Status Assessment Status Assessment Status Evaluation Outpatient Past Medical History Neurological History Hx Cerebrovascular Accident (CVA) Yes: Nov 2018, L hemiplegia Cardiovascular History Hx Hypertension Yes Respiratory History Hx Respiratory Disorders No Significant History Gastrointestinal History Hx Cholecystectomy Yes Hx Gastroesophageal Reflux Disease Yes Hx Obstructive Bowel Yes Genitourinary History Hx Benign Prostatic Hyperplasia Yes Musculoskeletal History Hx Back Pain Yes Hx Joint Replacement Yes: R ISAIAS Hx Other Musculoskeletal Disorders Yes: Pain R shoulder Hematological History Hx Hematological Disorders No Significant History Endocrine History Hx Endocrine Disorders No Significant History HEENT History Hx HEENT Disorders No Significant History Integumentary History Hx Skin Disorders No Significant History Reproductive History Hx Reproductive Disorders No Significant History Psychosocial History Hx Anxiety Yes Hx Depression Yes Pain History Has Past Pain Affected Your Daily Life Yes History of Long-Term Prescription Pain Yes Medication Use (Opiates) Effective Methods of Pain Control Botox Anesthesia History Hx Anesthesia Reactions No Significant History Other History Hx Other Surgeries Yes: gallbladder Evaluation Information Problem Diagnosis spasticity as late effect of CVA Onset Nov 2018 - CVA Additional Evaluation Detail Kenneth is familiar to this clinic as he was recently discharged (Jun 2020) from here after 3 months of therapy. Subjective Information Patient states he has Query Text:As Reported By Patient/ continued to do the home Family exercise program that was issued to him here. He also has a personal driver that comes to his home 2x/week for 1 hour sessions to help with his exercises and ROM. Prior Level of Function Activity Level (Last 3 Months) Hand Dominance Right Home Setting Home Type Single Level Environmental Barriers Stairs, None Living Situ
--- NOTE | 2020-08-10 14:02 | PTOPEVAL ---
PHYSICAL THERAPY EVALUATION AND PLAN OF CARE 08-10-2020 Thank you for referring Kenneth Page to [facility].? Kenneth is scheduled to be seen for Physical Therapy 1 x/week for 5 weeks. Please review, sign, date and return this plan of care TAHIRA. I agree with and certify that the following plan of care is medically necessary. Referring Physician Date Attending Provider: Martinez Diallo MD *PT Outpatient Evaluation Start: 08/10/20 12:37 Document 08/10/20 12:30 JALEESA (Rec: 08/10/20 13:55 JALEESA [id number]) Outpatient Past Medical History Past Medical History Source of Past Medical History Patient,Recalled from Previous Visit, Confirmed with Patient /Family Neurological History Hx Cerebrovascular Accident (CVA) Yes: Nov 2018, L hemiplegia Cardiovascular History Hx Hypertension Yes: no longer on meds, monitoring Respiratory History Hx Respiratory Disorders No Significant History Gastrointestinal History Hx Cholecystectomy Yes Hx Gastroesophageal Reflux Disease Yes Hx Obstructive Bowel Yes Genitourinary History Hx Benign Prostatic Hyperplasia Yes Musculoskeletal History Hx Back Pain Yes Hx Joint Replacement Yes: R ISAIAS Hx Other Musculoskeletal Disorders Yes: Pain L shoulder- no longer have- botox Hematological History Hx Hematological Disorders No Significant History Endocrine History Hx Endocrine Disorders No Significant History HEENT History Hx HEENT Disorders No Significant History Integumentary History Hx Skin Disorders No Significant History Reproductive History Hx Reproductive Disorders No Significant History Psychosocial History Hx Anxiety Yes Hx Depression Yes Pain History Effective Methods of Pain Control Botox Anesthesia History Hx Anesthesia Reactions No Significant History Other History Hx Other Surgeries Yes: gallbladder Evaluation Information Problem Diagnosis s/p CVA Onset Nov 26, 2018 Subjective Information return to therapy states he Query Text:As Reported By Patient/ wants: move L leg better- Family knee move better; Previous Treatments Previous Treatments For This Problem PT here March to Jun 2020 Prior Level of Function Activity Level (Last 3 Months) 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
[2020-09-14 10:05] VITALS: BP_SYST 100
--- NOTE | 2020-09-14 10:44 | OTOPEVAL ---
OCCUPATIONAL THERAPY RE-EVAL AND DISCHARGE NOTE 09/14/2020 Patient presents for re-evaluation after 4 treatment visits focused on HEP progression and teaching e-stim locations for the UE to continue to use at home. Patient is independent with his home exercises and e-stim for the left UE. As described above, no functional changes noted in the UE at this time. No further skilled OT indicated at this time. Thank you for referring Kenneth Page to [facility]. Please review, sign, date and return this Discharge Note TAHIRA. I agree with and certify that the following plan of care is medically necessary. Referring Physician Date Referring Provider: Toño Oviedo MD *OT Outpatient Re-Evaluation Evaluation Information Problem Diagnosis s/p CVA Onset Nov 26, 2018 Subjective Information Kenneth states that he feels that Query Text:As Reported By Patient/ his shoulder is stronger and Family he is able to move his arm away from his body. He has chimney builder helper 2 days a week to help with exercises and they are independent with all HEPs. Pain Assessment Timing of Pain Assessment Timing of Pain Assessment Re-assessment Self Report Self Report Pain Level 0 Pain Score Pain Score 0: Self Report Upper Extremity Range of Motion Scapular/ Shoulder Range of Motion Left Scapular: Retraction Hypomobile Scapular: Protraction Hypomobile Scapular Downward Rotation Hypomobile Scapular Upward Rotation Hypomobile Shoulder Flexion - Active 30 Shoulder Flexion - Passive 110 Shoulder Extension - Active 30 Shoulder Abduction - Active 40 Shoulder Abduction - Passive 100 Shoulder Lateral Rotation - Active 0 Shoulder Lateral Rotation - Passive 30 Scapular/Shoulder Range of Motion Muscle Length Restriction, Limitations Muscle Tone Scapular/Shoulder Range of Motion No increases in ROM of the Comments shoulder. Elbow/Forearm Range of Motion Left Elbow/Forearm Range of Motion Comments No AROM of the left elbow. PROM is WFL. No change since the evaluation. Wrist Range of Motion Left Wrist Range of Motion Comments No AROM of the left wrist. PROM is WNL. No change since the evaluation. Finger Range of Motion Left Finger Range of Motion Comments No AROM of the left hand. Fingers rest in an intrinsic plus position. Has a resting hand splint. No changes since the evaluation. OT Clinical Summary OT Clinical Summary Patient presents for re- evaluation after 4 treatment
--- NOTE | 2020-09-14 11:47 | PTOPEVAL ---
PHYSICAL THERAPY DISCHARGE 09-14-2020 See clinical summary below for the comparison to initial evaluation. The goals were partially achieved. Thank you for referring Kenneth Page to [facility].? Please review, sign, date and return this discharge TAHIRA. I agree with and certify that the following plan of care is medically necessary. Referring Physician Date Attending Provider: Martinez Diallo MD PT Outpatient Discharge Document 09/14/20 11:07 JALEESA (Rec: 09/14/20 11:47 JALEESA [id number]) Subjective Information Kenneth reports: have weights, Query Text:As Reported By Patient/ stationary bike for pedaling Family when sitting; have helper and brother at home to help him; has not had any falls; car transfer is problem due to L knee not bending enough- brother has to help him; agrees to discharge from PT and to continue with walking and exercises at home. Pain Assessment Timing of Pain Assessment Timing of Pain Assessment Assessment Self Report Self Report Pain Level 0 Pain Score Pain Score 0: Self Report Additional Pain Score Comments have pain in L shoulder and hip--botox injections have helped pain; continue to get them every 3 months; Lower Extremity Muscle Strength Testing General Lower Extremity Strength Gross Lower Extremity Strength functional strength: L LE in supine: SLR x 10 reps; hip abduction x 10 reps; sitting knee extension to (-30') to 75 ' x 5 reps- increased extension tone of leg; Transfer Assessment Chair Transfer Assessment Sit to Stand Chair Transfer Ability Standby Assistance Stand to Sit Chair Transfer Ability Standby Assistance Ability to Transfer In/Out of Chair Standby Assistance Chair Transfer Comments increased tone in L LE- hip and knee extension; trunk lean posterior; uses UE to flex L knee and place foot in correct position ; Bed Mobility Assessment Bed Mobility Bed Type Mat Supine to Sit Ability Minimum Assistance X 1 Sit to Supine Ability Independent Bed Mobility Comments unable to raise trunk up off mat, required [employer]PA[employer] of PT to pull trunk up to sitting; at home, has bed rail and
== END 2020-09-15 08:41 | disposition home or self-care (01) ==
LOC: ANHPT 11:00
PROVIDERS: PCP Internal Medicine; Visit Provider Internal Medicine
DX: I69.398 Other sequelae of cerebral infarction (principal); R25.9 Unspecified abnormal involuntary movements
CPT/HCPCS: 97014; 97110; 97116; 97140; 97161; 97165; G0283

== ENCOUNTER → 2021-07-10 10:40 | Outpatient (CLI) | payer MEDICARE, SELFPAY ==
--- NOTE | ~2021-07-10 | MR_ITS ---
EXAMINATION: MR brain IAC wo/w con DATE: 07/10/2021 11:56 INDICATION: Sensorineural hearing loss. Tinnitus. Dizziness. TECHNIQUE: Magnetic resonance imaging (MRI) of the brain, brainstem, and internal auditory canals was performed without and with 15 mm MultiHance intravenous contrast. Sequences included sagittal and ax ial T1-weighted FSE, axial diffusion-weighted FS EPI, axial T2*-weighted GRE, axial T2-weighted FLAIR Propeller, axial T2-weighted Propeller, small lmlhs-kf-kefh coronal FIESTA, small uhnxx-vm-babk ginger nal T1-weighted FSE, and small sthls-bv-nvxn axial T1-weighted SPGR. Postcontrast sequences included axial T1-weighted FSE, small ebivj-ez-nivb coronal T1-weighted FSE, and small eazjr-ws-qwal axial T1- weighted SPGR. Apparent diffusion coefficient (ADC) maps were created. COMPARISON: Head CT 02/20/2019 FINDINGS: There is chronic encephalomalacia involving the right basal ganglia, right internal capsul e, right thalamus, and right insula with associated old blood products. There are punctate foci of ol d blood products in the aniket on the right. There is chronic Wallerian degeneration involving the righ t corticospinal tracts. There are scattered areas of nonspecific increased T2-weighted signal intensi ty in the cerebral white matter and aniket. There is no acute ischemic infarct or abnormal mass lesion. There is ex vacuo dilatation of body of right lateral ventricle. The internal auditory canals and in ner and middle ears are normal. The mastoid air cells are normal. There is mucosal thickening in the paranasal sinuses, worst in the left ethmoid sinuses. The orbits are normal. IMPRESSION: 1. Chronic encephalomalacia with old blood products involving the right basal ganglia, right internal capsule, right thalamus, and right insula. 2. Mild nonspecific cerebral white matter disease and pontine disease, which likely represents chroni c small vessel ischemic disease. 3. Punctate old microhemorrhages in the aniket. Reviewed, dictated and finalized at location A. IMPRESSION: 1. Chronic encephalomalacia with old blood products involving the right basal g anglia, right internal capsule, right thalamus, and right insula. 2. Mild nonspecific cerebral white matter disease and pontine disease, which reynold cortés represents chronic small vessel ischemic disease. 3. Punctate old microhemorrhages in the aniket.
[2021-07-10 11:23] LABS: Estimated Glomerular Filt Rate > 60
== END ==
PROVIDERS: PCP Internal Medicine
DX: H90.3 Sensorineural hearing loss, bilateral (principal); R93.0 Abnormal findings on diagnostic imaging of skull and head, not elsewhere classified
CPT/HCPCS: 70553; A9577

== ENCOUNTER → 2022-07-13 09:15 | Outpatient (CLI) | payer MEDICARE, SELFPAY ==
--- NOTE | ~2022-07-13 | CT_ITS ---
EXAMINATION: CT sinus wo con DATE: 07/13/2022 09:32 INDICATION: Chronic sinusitis. TECHNIQUE: Computed tomography (CT) of the paranasal sinuses was performed without intravenous contra st. Iterative reconstruction technique was employed. The dose-length product was 269.39 mGy-cm. COMPARISON: Head CT 02/20/2019 FINDINGS: There is near complete opacification of the frontal and ethmoid sinuses. There is moderate mucosal thickening in the sphenoid and maxillary sinuses. There is leftward deviation of the nasal se ptum. The ostiomeatal units are occluded. IMPRESSION: 1. Extensive opacification of the paranasal sinuses with occluded ostiomeatal units. 2. Leftward deviation of the nasal septum. Reviewed, dictated and finalized at location B. IMPRESSION: 1. Extensive opacification of the paranasal sinuses with occluded ostiomeatal u nits. 2. Leftward deviation of the nasal septum.
== END ==
PROVIDERS: PCP Internal Medicine; Visit Provider Allergy & Immunology
DX: J32.9 Chronic sinusitis, unspecified (principal); J34.2 Deviated nasal septum
CPT/HCPCS: 70486

== ENCOUNTER 2023-04-05 11:00 | Outpatient (RCR) | payer MEDICARE, SELFPAY ==
--- NOTE | 2023-02-20 12:53 | PTOPEVAL1 ---
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 He gets regular botox injections and takes muscle relaxers as needed, and does acupuncture to help with his muscle spasms and tone. He states he has a full home gym with a [place] based physical therapist that comes to his home twice a week. He states he takes many supplements, tracks his sleep, and eat a fully organic diet to achieve mindfulness and content with his situation. He states he stands and walks very short distances with a hemiwalker but does not d/t the balance concerns. He reports a chronic L hip and shoulder subluxation. Reported Pain Level Pain Score 0: Self Report Assessment PT Clinical Summary Kenneth presents to therapy today for his initial evaluation for his residual deficits following a CVA in 2019. Today he demonstrates a spastic LLE with no active motion of his LLE. He demonstrates IND with functional sit to stands and states he can complete most of his daily needs. He has not completed traditional in person skilled physical therapy in over 2 years and would like a new HEP, and to work on modification to become modified IND with toileting. Skilled physical therapy services are indicated to improve positioning, functional mobility, modified independence, and to improve currently baseline mobility. Plan of Care Interventions Check Out for Orthotic/Pr,Gait Training,Manual Therapy,Neuro Re-education,Patient/Caregiver Educati,Therapeutic Activities,Therapeutic Exercise,Self-Care/Home Management,Wheelchair Training PT Services Indicated Yes Treatment Frequency and 1x/wk for 6 wks Duration These treatments will address the objective and functional deficits as defined above. The patient will be advanced safely and appropriately in order for the patient to progress towards his/her prior level of function. Additional exercises will be introduced and as well as a comprehensive home exercise program upon discharge, if needed, ?to ensure carryover of functional gains achieved in the clinic. This treatment plan has been reviewed and agreement upon by the patient.
--- NOTE | 2023-03-29 11:20 | PCPTNOTE ---
Patient called and states he is unable to make appointment this date.
--- NOTE | 2023-04-05 12:31 | PTOPDC ---
Assessment and note entered by Sailaja Maza, PT, DPT Evaluation Information Assessment Status discharge Diagnosis Hemiplegia Onset 2019 Subjective Information Pt states he is now able to get in/out of bed on his own, without assistance. He states he got his bathroom set up much better and he is able to get in/out of the bathroom with visual guarding and SBA and is progressing to no assist as his confidence is building. He states he continue to struggle a little bit with rolling prone to supine at the chiropractor. Reported Pain Level Pain Score 0: Self Report Assessment PT Clinical Summary Kenneth presents to therapy today for his progress report following 5 visits of skilled therapy to treat the remaining deficits after a CVA in 2018. Today he reports the ability to transfer in/out of bed IND, bathroom transfers with SBA, and gait with Min A. He continues to require cues during short distance ambulation for pacing, he is able to articulate the proper sequence. He will be discharged at this time and plans to return after surgery in July. Plan of Care PT Services Indicated No
== END 2023-04-05 13:16 | disposition home or self-care (01) ==
LOC: ANHGOSHPT 11:00
PROVIDERS: PCP Internal Medicine; Visit Provider Nurse Practitioner
DX: G81.94 Hemiplegia, unspecified affecting left nondominant side (principal)
CPT/HCPCS: 97110; 97112; 97116; 97140; 97162; 97530

== ENCOUNTER 2023-09-05 08:46 | Outpatient (CLI) | payer MEDICARE, SELFPAY ==
--- NOTE | ~2023-09-05 | XR_ITS ---
Clinical Indication: Shortness of breath AP and lateral views of the chest: Comparison: 02/20/2019 Findings: The lungs are clear, without evidence of focal consolidation or pleural effusion. Possible COPD. Cardiomediastinal silhouette is within normal limits. Bones and soft tissues are unremarkable. Impression: Clear lungs. Possible COPD. Reviewed, dictated and finalized at location . HELPER Impression: Clear lungs. Possible COPD.
--- NOTE | 2023-09-05 13:11 | WPDPFTINT ---
PFT Procedure Performed PFT Procedure Performed Plethysmography (Lung Vol) Diffusing Cap (DLCO) Flow Vol Loop Spirometry w/o Bronchodil PFT Interpretation This is a pulmonary function test with spirometry, plethysmography and diffusing capacity. The test was performed and results interpreted in accordance with the 2019 and 2005 ATS/ERS Task Force guidelines respectively using the Global Lung Function Initiative-2012 reference equations. Patient demonstrated good effort and cooperation. Reproducibility criteria were met. The quality of the spirometry maneuver was Grade A. Findings: Spirometry: There is decreased maximal expiratory airflow at all lung volumes with concave expiratory flow tracing. The contour the inspiratory flow tracing is normal. The FVC is 4.53 L, 109% predicted. The FEV1 is 2.31 L, 73% predicted. The FEV1: FVC ratio is 51%. Plethysmography: The total lung capacity is 7.54 L, 111% predicted. The functional residual capacity is 5.02 L, 140% predicted. The residual volume is 3.01 L, 128% predicted. Diffusing capacity: The diffusing capacity unadjusted for hemoglobin and carboxyhemoglobin is 18.9, 72% predicted. The diffusing capacity adjusted for alveolar volume is 3.05, 75% predicted. Impression: There is a mild obstructive abnormality with a normal FEV1. Hyperinflation is present as demonstrated by the increase in functional residual capacity and is consistent with an obstructive abnormality. The diffusing capacity is normal. There are no prior studies for comparison
== END 2023-09-05 08:47 | disposition home or self-care (01) ==
PROVIDERS: PCP Nurse Practitioner; Visit Provider Nurse Practitioner
DX: R06.02 Shortness of breath (principal); R94.2 Abnormal results of pulmonary function studies
CPT/HCPCS: 71046; 94375; 94726; 94729

== ENCOUNTER 2024-03-20 13:29 | Outpatient (CLI) | payer MEDICARE, SELFPAY ==
--- NOTE | ~2024-03-20 | XR_ITS ---
[id number] Ordering provider: Jamil Montiel APRN History: . M54.2 - Cervicalgia . Comparison: None. FINDINGS: VERTEBRAL BODIES: Minimal subluxation of the C1-C2 complex compared to the foramen magnum. Evaluation with MRI is advised. Otherwise, Normal height and alignment. No visible fracture or sublux ation. The dens is intact. DISK SPACES: Narrowing of the disc C5-C6 and C6-C7. Multilevel facet joint disease. Multilevel uncove rtebral joint osteoarthritic changes. PARASPINOUS SOFT TISSUES: Left carotid calcification. IMPRESSION: Minimal subluxation of the C1-C2 complex compared to the foramen magnum as seen in the lateral view. MRI is advised. Otherwise, No acute osseous abnormality cervical spine. Reviewed, dictated and finalized at location A. IMPRESSION: Minimal subluxation of the C1-C2 complex compared to the foramen magnum as seen in the lateral view. MRI is advised. Otherwise, No acute osseous abnormality c ervical spine.
--- NOTE | ~2024-03-20 | CT_ITS ---
CT head without contrast Indication: Head injury Technique: Serial scans were obtained through the brain without the administration of contrast. Dose reduction technique was used on this scan by utilizing automated exposure control and iterative recon struction technique. The dose-length product (DLP) was 887.82 mGy-cm. Findings: There is no evidence of intracranial hemorrhage, mass lesion, or acute infarct. Chronic inf arct present in the right basal ganglia and right periventricular white matter. Additional hypodense areas suggest chronic microvascular ischemic change, asymmetrically worse in the right than the left. The ventricles and subarachnoid spaces are dilated, consistent with mild atrophy. Low attenuation r egions are seen within the periventricular white matter bilaterally, likely representing changes from chronic microvascular ischemic disease. There is no evidence of edema, mass effect or midline shift . There is mild sinus disease involving the maxillary sinuses and ethmoid air cells. The remaining vi sualized paranasal sinuses and mastoid air cells are clear. Impression: No intracranial hemorrhage, mass, or acute infarct. Chronic right basal ganglia/right periventricular matter infarct, as above. Atrophy and chronic white matter changes, as above. Reviewed, dictated and finalized at location . Impression: No intracranial hemorrhage, mass, or acute infarct. Chronic right basal ganglia/right periventricular matter infarct, as above. Atrophy and chronic white matter changes, as above.
== END 2024-03-20 13:30 ==
LOC: GOSHIMG 13:30
PROVIDERS: PCP Nurse Practitioner; Visit Provider Nurse Practitioner
DX: S09.90XA Unspecified injury of head, initial encounter (principal); X58.XXXA Exposure to other specified factors, initial encounter; R90.82 White matter disease, unspecified
CPT/HCPCS: 70450; 72040